=== PATIENT | female | born 1965 | race Caucasian/White ===

== ENCOUNTER → 2017-05-29 | Outpatient (CLI) | payer BC ==
[~2017-05-29] MED LIST: ATEN50TA8 PO; HYDC25 PO; MEDLIST; PRLSRUNK PO
--- NOTE | 2017-05-29 14:01 | DIAGNOSTIC IMAGING REPORT ---
LEFT SHOULDER 3 VIEWS CLINICAL HISTORY: Left shoulder pain. FINDINGS: 3 views of left shoulder are obtained. No prior studies are available for comparison at the time of dictation. The skeletal structures are osteopenic. No fracture or dislocation is seen. The glenohumeral and acromioclavicular joints appear maintained. The overlying soft tissues are within normal limits. The imaged left upper lobe lung parenchyma appears clear. IMPRESSION: No acute bony abnormality is seen in the left shoulder. Electronically signed by: Oz Hanks M.D. 05/29/2017 2:00 PM Dictated Date/Time: 05/29/2017 1:59 PM
== END | disposition home or self-care (01) ==
LOC: C.RDSM 15:30
PROVIDERS: ATTEND Family Medicine
DX: M25.512 Pain in left shoulder (principal)

== ENCOUNTER → 2017-07-17 | Outpatient (CLI) | payer BC ==
[~2017-07-17] MED LIST changes: +GADAVIST IV PRN
--- NOTE | 2017-07-17 10:28 | DIAGNOSTIC IMAGING REPORT ---
L INJECTION SHOULDER PRE MRI FLUOROSCOPY TIME: 20 seconds HISTORY: Shoulder pain. LEFT SHOULDER PAIN PROCEDURE: After obtaining written informed consent, the patient was placed supine on the fluoroscopy table. A suitable site for needle insertion was marked using fluoroscopic guidance. The left shoulder was prepped and draped in the usual sterile fashion. 1% lidocaine was used for skin, subcutaneous and deep soft tissue anesthesia. Under intermittent fluoroscopic guidance, a 22 gauge 2.5 inch spinal needle was inserted into the left glenohumeral joint. A total of 14 cc of one-to-one mixture of dilute Magnevist (0.1 cc in 10 cc saline) and Optiray 300 were injected. The needle was then removed. There were no apparent complications. The patient was transported to for further imaging. IMPRESSION: Fluoroscopic-guided left shoulder arthrogram without immediate complication. Total injected volume was 14 cc. MR portion of the examination will be dictated separately. The above report was generated using voice recognition software. It may contain grammatical, syntax or spelling errors. Electronically signed by: Jose D Palm M.D. 07/17/2017 10:26 AM Dictated Date/Time: 07/17/2017 10:26 AM
--- NOTE | 2017-07-17 10:47 | DIAGNOSTIC IMAGING REPORT ---
MRI ARTHROGRAM OF THE LEFT SHOULDER CLINICAL HISTORY: Left shoulder pain and clicking. Possible lifting injury. COMPARISON STUDY: Left shoulder radiographs October 27, 2017. TECHNIQUE: Following a fluoroscopically guided left shoulder arthrogram and utilizing a 1.5 Armida magnet, multiplanar, multiecho imaging of the left shoulder was performed without intravenous contrast. FINDINGS: Alignment of the left shoulder is anatomic. Glenohumeral joint opacification with contrast is excellent. There is moderate acromioclavicular joint osteoarthritis with capsular hypertrophy and osteophytosis. There is mild adjacent edema. There is a small amount of fluid within subacromial/subdeltoid bursa. There is no contrast within the bursa to indicate a full-thickness rotator cuff tear. Note is made of a partial thickness articular surface tear of distal supraspinatus shown best on coronal image 9 of 21. There is no full-thickness rotator cuff tear. There is tendinopathy of distal infraspinatus with no full-thickness tear. Subscapularis and teres minor are intact. There is no tendon retraction or muscular atrophy. The proximal long head of the biceps tendon is intact. The posterior glenoid labrum is somewhat diminutive and irregular. There is also irregularity of the anterior inferior glenoid labrum. IMPRESSION: 1. Partial thickness articular surface tear of distal supraspinatus. No full-thickness rotator cuff tear. No tendon retraction or muscular atrophy. Tendinopathy of distal infraspinatus. Trace fluid within subacromial/subdeltoid bursa. No contrast within the bursa. 2. Moderate osteophytosis of the left acromioclavicular joint. 3. Posterior superior glenoid labrum is somewhat irregular and diminutive which may reflect a tear. Equivocal anterior inferior glenoid labral tear. Electronically signed by: Italo Saucedo M.D. 07/17/2017 10:46 AM Dictated Date/Time: 07/17/2017 10:37 AM
== END | disposition home or self-care (01) ==
LOC: C.MRIBC 09:23
PROVIDERS: ATTEND Family Medicine
DX: M25.512 Pain in left shoulder (principal); S46.012A Strain of muscle(s) and tendon(s) of the rotator cuff of left shoulder, initial encounter; M75.82 Other shoulder lesions, left shoulder; M25.712 Osteophyte, left shoulder; S43.432A Superior glenoid labrum lesion of left shoulder, initial encounter; X58.XXXA Exposure to other specified factors, initial encounter